=== PATIENT | male | born 1995 | race Caucasian/White ===

== ENCOUNTER 2019-05-28 12:00 | Emergency (ER) | payer BC ==
[2019-05-28 12:11] VITALS: BP 129/88; PULSE 75; RESP 18; TEMP 98
--- NOTE | 2019-05-28 12:40 | XR ---
EXAMINATION TYPE: XR elbow complete LT, XR forearm LT DATE OF EXAM: 05/28/2019 CLINICAL HISTORY: Fall injury with pain. TECHNIQUE: Frontal, lateral and oblique images of the left elbow are obtained. 2 views left forearm are acquired. COMPARISON: None FINDINGS: There is linear lucency consistent with acute minimally displaced intra-articular fracture through the radial head. Associated abnormal fat pad signs are seen. No dislocation is evident. The overlying soft tissue appears unremarkable. Images of the left forearm show no additional acute fracture or dislocation distally. Carpal joint sp aces are maintained. Overlying soft tissue is unremarkable. IMPRESSION: There is acute minimally displaced intra-articular fracture through the radial head. (Initial encounter closed type posttraumatic fracture)
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
== END 2019-05-28 13:27 | disposition home or self-care (01) ==
LOC: EC 12:00
DX: S52.122A Displaced fracture of head of left radius, initial encounter for closed fracture (principal); F17.200 Nicotine dependence, unspecified, uncomplicated; V29.9XXA Motorcycle rider (driver) (passenger) injured in unspecified traffic accident, initial encounter; Y93.55 Activity, bike riding; Y92.410 Unspecified street and highway as the place of occurrence of the external cause
CPT/HCPCS: 29105; 99284